=== PATIENT | female | born 1960 | race Caucasian/White ===

== ENCOUNTER 2016-04-02 15:58 | Outpatient (CLI) ==
--- NOTE | 2016-04-02 16:42 | DI ---
EXAM: Three views of the right ankle HISTORY: Arthralgia. COMPARISON: None FINDINGS: The joint spaces maintained. There is no lytic or blastic lesion. There are osteophytes of the calcaneus. The soft tissues are unremarkable. The hind foot structures are normal. There i s minimal degenerative osteophyte formation of the right ankle. IMPRESSION: Degenerative change of the right ankle and osteophytes of the posterior calcaneus.
== END 2016-04-02 15:59 | disposition home or self-care (01) ==
LOC: RAD 15:58
PROVIDERS: ATTEND Family Medicine
DX: M25.571 Pain in right ankle and joints of right foot (principal)

== ENCOUNTER 2017-05-27 10:38 | Outpatient (CLI) ==
--- NOTE | 2017-05-28 11:50 | MAMMO ---
EXAM: Bilateral digital screening mammogram (2-D and 3-D) History: Screening Comparison: Bilateral mammogram 12/25/2013 Findings: MLO and CC views of bilateral breasts demonstrate predominately fatty replaced breast pare nchyma. CAD was reviewed by the radiologist. Tomosynthesis was performed. There are no dominant ma sses, no suspicious microcalcifications and no architectural distortions. Impression: Stable negative mammogram. Recommend followup routine screening mammography in 1 year. BIRADS 1
== END 2017-05-27 10:39 | disposition home or self-care (01) ==
LOC: RAD 10:38
PROVIDERS: ATTEND Family Medicine
DX: Z12.31 Encounter for screening mammogram for malignant neoplasm of breast (principal)
CPT/HCPCS: 77067

== ENCOUNTER 2018-01-10 13:55 | Outpatient (CLI) ==
--- NOTE | 2018-01-10 14:43 | US ---
EXAM: Left upper extremity venous Doppler. History: Left upper extremity swelling. Technique: Multiple sonographic images through the left upper extremity were obtained. Color duplex Doppler was used to interrogate vascular flow. Findings: The left internal jugular, subclavian, axillary, brachial, cephalic, basilic, radial and u lnar veins demonstrate spontaneous flow with normal compression and normal augmentation. Impression: No sonographic evidence for deep venous thrombosis
== END 2018-01-10 13:56 | disposition home or self-care (01) ==
LOC: RAD 13:55
PROVIDERS: ATTEND Family Medicine
DX: R60.0 Localized edema (principal)